=== PATIENT | female | born 2000 | race Caucasian/White ===

== ENCOUNTER 2021-04-28 14:07 | Emergency (ER) | payer MEDICAID ==
[~2021-04-28] VITALS: Ht 162.6 cm; Wt 63.6 kg
[2021-04-28 15:09] VITALS: BP 117/66
== END 2021-04-28 15:55 | disposition home or self-care (01) ==
LOC: ER 14:07
DX: J06.9 Acute upper respiratory infection, unspecified (principal); Z20.822 Contact with and (suspected) exposure to COVID-19; R06.02 Shortness of breath; R51.9 Headache, unspecified; R42 Dizziness and giddiness; J45.909 Unspecified asthma, uncomplicated; F17.200 Nicotine dependence, unspecified, uncomplicated
CPT/HCPCS: 87635; 99283; C9803

== ENCOUNTER 2021-06-14 16:15 | Emergency (ER) | payer MEDICAID ==
[~2021-06-14] VITALS: Ht 157.5 cm; Wt 46.8 kg
[2021-06-14 16:30] VITALS: BP 97/58
[2021-06-14] MEDS ORDERED: ALBU8HFA PO (16:44)
[2021-06-14] MEDS ORDERED: BENZ-16 PO (16:44)
[2021-06-14] MEDS ORDERED: acetaminophen 325mg tablet PO ONE (17:20)
== END 2021-06-14 18:00 | disposition home or self-care (01) ==
LOC: ER 16:15
DX: U07.1 COVID-19 (principal); R05 Cough; R42 Dizziness and giddiness; J45.909 Unspecified asthma, uncomplicated; Z79.899 Other long term (current) drug therapy
CPT/HCPCS: 36415; 71045; 99284; U0003; U0005